=== PATIENT | male | born 1980 | race Caucasian/White ===

== ENCOUNTER 2017-01-20 16:18 | Emergency (ER) | payer MEDICAID ==
--- NOTE | 2017-01-20 16:23 | EDPHY ---
H & P Time Seen by Provider: 01/20/17 16:21 HPI/ROS: CHIEF COMPLAINT: Right ankle pain HISTORY OF PRESENT ILLNESS: Patient injured his right ankle on January 06 and was seen at [facility] initially diagnosed with a sprain. He tells me he went back 2 days later and had a CT scan which showed a distal fibula fracture but was told to "Walk it off." [place] started having increasingly severe right ankle pain laterally and also an laterally on the foot. He was able to crawl back to the road, and called ambulance who brought him here for evaluation. Fentanyl 100 mcg IV prior to arrival. No other injuries. Corhio reviewed including xray study on January 06 which showed small avulsion distal fibula. He denies any new acute injury today, just more pain when he tried to walk on it. REVIEW OF SYSTEMS: Eye: no change in vision ENT: no sore throat Cardiac: no chest pain or syncope Pulmonary: no cough or SOB Abdomen: no vomiting, diarrhea, has chronic abdominal pain from chronic pancreatitis which is unchanged Musculoskeletal: HPI Skin: no rash Neuro: no headache Constitutional: no fever : no urinary symptoms A comprehensive 10 point review of systems is otherwise negative aside from elements mentioned in the history of present illness. PAST MEDICAL HISTORY: Previous orthopedic injuries, pancreatitis, alcoholism Social history: Alcohol today General Appearance: Alert and conversant, cooperative. Eyes: No scleral icterus. ENT, Mouth: Normal mucous membranes. Respiratory: Normal respiratory effort, breath sounds equal, lungs are clear to auscultation. Cardiovascular: Regular rate and rhythm. Gastrointestinal: Abdomen is soft and non tender. Neurological: Alert and oriented x3. Normally conversant. Face symmetric, normal movement and sensation in all extremities. Skin: Warm and dry, no rashes. No laceration or abrasion or bruising over the right ankle or foot. Musculoskeletal: No tenderness of the proximal right tibia or fibula. Limited range of the ankle motion because of pain. Lateral malleolus swelling and tenderness and right 5th metatarsal base tenderness. Normal motor sensory and dorsalis pedis pulse in the right foot. Calf nontender and compartments are soft. Psychiatric: Not agitated. Emergency Department course/MDM: X-ray of the right foot and ankle ordered. Received 100 mcg fentanyl IV pre- hospital. Will hold on further narcotics because of recent alcohol ingestion. 1705: Results discussed with the patient. He is certain that he had an imaging study at [facility] that was a CT scan that showed a distal fibular fracture and no other injuries. Eren [place] and outpatient orthopedic follow-up. Smoking Status: Current every day smoker Constitutional: Initial Vital Signs Temperature (C) 36.9 C 01/20/17 16:36 Heart Rate 110 H 01/20/17 16:36 Respiratory Rate 16 01/20/17 16:36 Blood Pressure 115/95 H 01/20/17 16:36 O2 Sat (%) 92 01/20/17 16:36 O2 Delivery Mode Room Air Allergies/Adverse Reactions: Penicillins Allergy (Verified 05/13/16 03:04) Home Medications: Medication Instructions Recorded Bp Med 05/13/16 Medical Decision Making - Diagnostics Imaging Results: Imaging Impressions Ankle X-Ray 01/20/17 16:21 Impression: Subacute distal fibular fracture and medial talar fracture without widening of the ankle mortise. Findings and recommendations discussed with emergency department physician, Torin Nesbitt MD at 1658 hours on January 20, 2017. Final report concurs with initial preliminary interpretation. Foot X-Ray 01/20/17 16:21 Impression: 1. Medial talar fracture and distal fibular fracture better identified on the ankle views. 2. No definite fracture of the toes or metatarsals. X-ray right ankle and foot personally interpreted as subacute distal fibular fracture. Differential Diagnosis: Differential considered including but not limited to DVT, fibula fracture, talar dislocation, ankle sprain. - Data Points Medications Given: Discontinued Medications Ibuprofen (Motrin) 600 mg PO EDNOW ONE Stop: 01/20/17 16:56 Last Admin: 01/20/17 17:12 Dose: Not Given Departure - Departure Disposition: Home, Routine, Self-Care Clinical Impression: Right ankle injury Qualifiers: Encounter type: initial encounter Qualified Code(s): S99.911A - Unspecified injury of right ankle, initial encounter Condition: Good Instructions: Ibuprofen (By mouth) Additional Instructions: Wear boot as needed for pain. Referrals: Kal Caldwell MD [Medical Doctor] - As per Instructions
[2017-01-20 16:40] VITALS: BP 115/95; PULSE 110; RESP 16; TEMP 98.4; O2SAT 92
[2017-01-20] MEDS ORDERED: IBUPROFEN 600 MG TAB PO ONE (16:55)
== END 2017-01-20 17:14 | disposition home or self-care (01) ==
LOC: EDUNIT#
DX: S99.911A Unspecified injury of right ankle, initial encounter (principal); F17.200 Nicotine dependence, unspecified, uncomplicated; X58.XXXA Exposure to other specified factors, initial encounter; Y99.8 Other external cause status; Y93.01 Activity, walking, marching and hiking